=== PATIENT | male | born 1960 | race Native Hawaiian/Other Pacific Islander ===

== ENCOUNTER 2017-06-06 14:03 | Emergency (ER) | payer OTHER ==
[~2017-06-06] VITALS: Ht 188 cm; Wt 90.7 kg
[2017-06-06 15:48] VITALS: BP 135/90; TEMP 99
[2017-09-27] MEDS ORDERED: ELIQUIS5 MG PO (09:38)
[2017-09-27] MEDS ORDERED: CYAN10009 IM (09:38)
[2017-09-27] MEDS ORDERED: MULTTAB52 PO (09:38)
[2017-09-27] MEDS ORDERED: SILV1CRE TOP (09:38)
[2017-09-27] MEDS ORDERED: LOPRESSOR 25 MG PO (09:38)
[2017-09-27] MEDS ORDERED: TAMS0.4C PO (09:38)
[2017-09-27] MEDS ORDERED: FOLI1TAB26 PO (09:38)
[2017-09-27] MEDS ORDERED: FURO40TA93 PO (09:38)
[2017-09-27] MEDS ORDERED: ZINC220C4 PO (09:38)
[2017-09-27] MEDS ORDERED: GABA300C2 PO (09:38)
== END 2017-06-06 15:50 | disposition home or self-care (01) ==
LOC: ED 14:03
DX: M19.012 Primary osteoarthritis, left shoulder (principal)
CPT/HCPCS: 99282

== ENCOUNTER 2017-09-17 16:24 | Outpatient (CLI) | payer OTHER | END 2017-09-17 16:32 | disposition short-term general hospital (02) | LOC: AMB 16:24 | DX: J16.8 Pneumonia due to other specified infectious organisms (principal); R06.02 Shortness of breath | CPT/HCPCS: A0425; A0427 ==

== ENCOUNTER 2017-09-17 16:33 | Inpatient (IN) | payer OTHER ==
[~2017-09-17] VITALS: Ht 185.4 cm; Wt 96.2 kg
[2017-09-17 16:34] VITALS: BP 125/88; TEMP 98.1
[2017-09-17 17:00] VITALS: BP 129/84
[2017-09-17 17:14] LABS: POTASSIUM 3.9 mmol/L (3.6-5.2)
[2017-09-17 17:17] LABS: PLATELET COUNT 128 K/uL (142-355)
[2017-09-17 17:30] VITALS: BP 133/81
[2017-09-17 18:00] VITALS: BP 130/73
[2017-09-17 18:28] VITALS: BP 133/85
[2017-09-17 23:26] VITALS: BP 140/77; TEMP 98.2; Ht 185.4 cm; Wt 96.2 kg
[2017-09-18] VITALS (7 sets, daily range): BP systolic 122–144; BP diastolic 71–97; TEMP 97.7–98.1
[2017-09-19 04:00] VITALS: BP 154/97; TEMP 97.9
[2017-09-19 08:00] VITALS: BP 134/103; TEMP 98
[2017-09-19 09:25] LABS: PLATELET COUNT 108 K/uL (142-355)
[2017-09-19 09:48] LABS: POTASSIUM 5.6 mmol/L (3.6-5.2)
[2017-09-19 12:00] VITALS: BP 136/88; TEMP 98.2
[2017-09-19 16:00] VITALS: BP 141/77; TEMP 98.2
[2017-09-19 20:00] VITALS: BP 144/87; TEMP 97.6
[2017-09-20] VITALS (10 sets, daily range): BP systolic 102–150; BP diastolic 64–98; TEMP 97.8–98.2
[2017-09-20 06:23] LABS: PLATELET COUNT 87 K/uL (142-355)
[2017-09-20 06:46] LABS: POTASSIUM 4.2 mmol/L (3.6-5.2)
[2017-09-21] VITALS (21 sets, daily range): BP systolic 117–159; BP diastolic 49–775; TEMP 97.5–98.8
[2017-09-21 03:58] LABS: PLATELET COUNT 77 K/uL (142-355)
[2017-09-21 04:59] LABS: POTASSIUM 4.7 mmol/L (3.6-5.2)
[2017-09-22] VITALS (22 sets, daily range): BP systolic 116–166; BP diastolic 55–114; TEMP 97.8–98.9
[2017-09-22 05:01] LABS: PLATELET COUNT 73 K/uL (142-355)
[2017-09-22 05:43] LABS: POTASSIUM 3.8 mmol/L (3.6-5.2)
[2017-09-23] VITALS (18 sets, daily range): BP systolic 111–163; BP diastolic 65–102; TEMP 98–99
[2017-09-23 09:38] LABS: PLATELET COUNT 95 K/uL (142-355)
[2017-09-23 09:55] LABS: POTASSIUM 3.5 mmol/L (3.6-5.2)
[2017-09-24] VITALS (32 sets, daily range): BP systolic 117–165; BP diastolic 72–105; TEMP 97.9–98.9
[2017-09-24 05:06] LABS: PLATELET COUNT 91 K/uL (142-355)
[2017-09-24 05:23] LABS: POTASSIUM 3.2 mmol/L (3.6-5.2)
[2017-09-25] VITALS (18 sets, daily range): BP systolic 124–163; BP diastolic 18–104; TEMP 97.8–98.7
[2017-09-25 05:29] LABS: PLATELET COUNT 104 K/uL (142-355)
[2017-09-25 06:24] LABS: POTASSIUM 3.3 mmol/L (3.6-5.2)
[2017-09-26] VITALS (14 sets, daily range): BP systolic 105–159; BP diastolic 67–90; TEMP 98–98.8
[2017-09-26 06:32] LABS: PLATELET COUNT 109 K/uL (142-355)
[2017-09-26 06:42] LABS: POTASSIUM 3.3 mmol/L (3.6-5.2)
[2017-09-27 01:45] VITALS: BP 120/82
[2017-09-27 03:45] VITALS: BP 126/82; TEMP 97.5
[2017-09-27 05:45] VITALS: BP 128/76
[2017-09-27 08:00] VITALS: BP 142/87; TEMP 97.9
[2017-09-27] MEDS ORDERED: TAMS0.4C PO ×2 (09:38)
[2017-09-27] MEDS ORDERED: GABA300C2 PO ×2 (09:38)
[2017-09-27] MEDS ORDERED: MULTTAB52 PO ×2 (09:38)
[2017-09-27] MEDS ORDERED: SILV1CRE TOP ×2 (09:38)
[2017-09-27] MEDS ORDERED: FURO40TA93 PO ×2 (09:38)
[2017-09-27] MEDS ORDERED: LOPRESSOR 25 MG PO ×2 (09:38)
[2017-09-27] MEDS ORDERED: FOLI1TAB26 PO ×2 (09:38)
[2017-09-27] MEDS ORDERED: ELIQUIS5 MG PO ×2 (09:38)
[2017-09-27] MEDS ORDERED: CYAN10009 IM ×2 (09:38)
[2017-09-27] MEDS ORDERED: ZINC220C4 PO ×2 (09:38)
== END 2017-09-27 15:45 | disposition home or self-care (01) | DRG 291 ==
LOC: ED 16:33 → MED/SURG 19:45 → ICU 09-20 11:45
PROVIDERS: Emergency Medicine; Family Medicine; Nurse Practitioner Family
PROC: 30233N1 Transfusion of Nonautologous Red Blood Cells into Peripheral Vein, Percutaneous Approach (ICD-10-PCS; 2017-09-18)
PROC: 30233N1 Transfusion of Nonautologous Red Blood Cells into Peripheral Vein, Percutaneous Approach (ICD-10-PCS; 2017-09-19)
PROC: 30233N1 Transfusion of Nonautologous Red Blood Cells into Peripheral Vein, Percutaneous Approach (ICD-10-PCS; 2017-09-21)
PROC: 30233R1 Transfusion of Nonautologous Platelets into Peripheral Vein, Percutaneous Approach (ICD-10-PCS; principal; 2017-09-22)
PROC: 0DJ08ZZ Inspection of Upper Intestinal Tract, Via Natural or Artificial Opening Endoscopic (ICD-10-PCS; 2017-09-24)
DX: I50.31 Acute diastolic (congestive) heart failure (principal); J18.8 Other pneumonia, unspecified organism; I48.91 Unspecified atrial fibrillation; E11.9 Type 2 diabetes mellitus without complications; Z91.14 Patient's other noncompliance with medication regimen; D64.89 Other specified anemias; E11.621 Type 2 diabetes mellitus with foot ulcer; E88.09 Other disorders of plasma-protein metabolism, not elsewhere classified; E83.51 Hypocalcemia; D69.6 Thrombocytopenia, unspecified; K92.2 Gastrointestinal hemorrhage, unspecified; K29.60 Other gastritis without bleeding; K29.80 Duodenitis without bleeding; K26.9 Duodenal ulcer, unspecified as acute or chronic, without hemorrhage or perforation; K21.9 Gastro-esophageal reflux disease without esophagitis; D47.3 Essential (hemorrhagic) thrombocythemia
CPT/HCPCS: 36415; 36430; 36591; 36600; 51702; 74022; 80053; 80202; 81000; 82140; 82150; 82272; 82550; 82570; 82728; 82747; 82805; 82948; 82962; 83540; 83615; 83690; 83735; 83880; 84300; 84484; 84540; 85014; 85018; 85027; 86850; 86900; 86901; 86922; 87040; 93005; 93306; 94640; 94664; 94760; 96365; 96366; 96367; 96372; 96374; 96375; 99284; J0456; J0696; J1160; J1170; J1650; J1815; J1940; J2001; J2060; J2250; J2270; J2405; J2704; J2930; J3370; J3420; J3475; J3490; P9016; P9035; P9047; Q9963

== ENCOUNTER 2017-10-06 11:54 | Emergency (ER) | payer OTHER ==
[~2017-10-06] VITALS: Ht 185.4 cm; Wt 96.2 kg
[2017-10-06 11:52] VITALS: TEMP 98.2
[~2017-10-06 11:54] MED LIST: CYAN10009 IM; ELIQUIS5 MG PO; FOLI1TAB26 PO; FURO40TA93 PO; GABA300C2 PO; LOPRESSOR 25 MG PO; MULTTAB52 PO; SILV1CRE TOP; TAMS0.4C PO; ZINC220C4 PO
[2017-10-06 12:55] LABS: PLATELET COUNT 94 K/uL (142-355)
[2017-10-06 13:15] LABS: POTASSIUM 2.5 mmol/L (3.6-5.2)
[2017-10-06 16:27] VITALS: BP 124/74
== END 2017-10-06 16:28 | disposition home or self-care (01) ==
LOC: ED 11:54
PROVIDERS: Specialist
DX: I99.8 Other disorder of circulatory system (principal); R18.8 Other ascites; F19.10 Other psychoactive substance abuse, uncomplicated
CPT/HCPCS: 36415; 36600; 80053; 80307; 80320; 81000; 82550; 82553; 82805; 83605; 83735; 83880; 84100; 84484; 85027; 85651; 93005; 99283

== ENCOUNTER 2017-10-17 14:13 | Outpatient (CLI) | payer OTHER ==
[2017-10-17] MEDS ORDERED: ELIQUIS5 MG PO (15:24)
[2017-10-17] MEDS ORDERED: FURO40TA93 PO (15:24)
[2017-10-17] MEDS ORDERED: ZINC220C4 PO (15:25)
[2017-10-17] MEDS ORDERED: ONE DAILY FOR MEN 50 OR (15:26)
[2017-10-17] MEDS ORDERED: GABA300C2 PO (15:27)
[2017-10-17] MEDS ORDERED: CYAN10009 IM (15:27)
[2017-10-17] MEDS ORDERED: PANTOPRAZOLE 40MG TA PO (15:28)
[2017-10-17] MEDS ORDERED: KP FOLIC ACID1 MG PO (15:28)
[2017-10-17] MEDS ORDERED: TAMSULOSIN0.4 MG PO (15:29)
[2017-10-17] MEDS ORDERED: SILVADENE1 % EX (15:29)
[2017-10-17] MEDS ORDERED: METO5TAB38 PO (15:30)
== END 2017-10-17 14:48 | disposition short-term general hospital (02) ==
LOC: AMB 14:13
DX: R06.09 Other forms of dyspnea (principal); R53.1 Weakness
CPT/HCPCS: A0425; A0427

== ENCOUNTER 2017-10-17 14:48 | Emergency (ER) | payer OTHER ==
[~2017-10-17] VITALS: Ht 182.9 cm; Wt 90.7 kg
[2017-10-17] MEDS ORDERED: FURO40TA93 PO (15:24)
[2017-10-17] MEDS ORDERED: ELIQUIS5 MG PO (15:24)
[2017-10-17] MEDS ORDERED: ZINC220C4 PO (15:25)
[2017-10-17] MEDS ORDERED: ONE DAILY FOR MEN 50 OR (15:26)
[2017-10-17] MEDS ORDERED: CYAN10009 IM (15:27)
[2017-10-17] MEDS ORDERED: GABA300C2 PO (15:27)
[2017-10-17] MEDS ORDERED: PANTOPRAZOLE 40MG TA PO (15:28)
[2017-10-17] MEDS ORDERED: KP FOLIC ACID1 MG PO (15:28)
[2017-10-17] MEDS ORDERED: TAMSULOSIN0.4 MG PO (15:29)
[2017-10-17] MEDS ORDERED: SILVADENE1 % EX (15:29)
[2017-10-17] MEDS ORDERED: METO5TAB38 PO (15:30)
[2017-10-17 15:40] LABS: PLATELET COUNT 87 K/uL (142-355)
[2017-10-17 16:06] LABS: POTASSIUM 2.4 mmol/L (3.6-5.2)
[2017-10-17 19:17] VITALS: BP 110/51; TEMP 98.7
== END 2017-10-17 20:25 | disposition short-term general hospital (02) ==
LOC: ED 14:48
PROVIDERS: Family Medicine
DX: K55.059 Acute (reversible) ischemia of intestine, part and extent unspecified (principal); E11.9 Type 2 diabetes mellitus without complications; I48.91 Unspecified atrial fibrillation
CPT/HCPCS: 36415; 80053; 82550; 83605; 83735; 84100; 84443; 84484; 85027; 93005; 96361; 96365; 96366; 96368; 96372; 96375; 99285; J1885; J3490; J7120

== ENCOUNTER 2018-03-02 19:28 | Outpatient (CLI) | payer OTHER ==
[~2018-03-02 19:28] MED LIST changes: +KP FOLIC ACID1 MG PO; +METO5TAB38 PO; +ONE DAILY FOR MEN 50 OR; +PANTOPRAZOLE 40MG TA PO; +SILVADENE1 % EX; +TAMSULOSIN0.4 MG PO
[2018-03-02] MEDS ORDERED: NADOLOL20 MG PO (19:54)
[2018-03-02] MEDS ORDERED: KLOR-CON M2020 MEQ PO (19:55)
[2018-03-02] MEDS ORDERED: SPIRONOLACT25 MG PO (19:56)
== END 2018-03-02 19:37 | disposition short-term general hospital (02) ==
LOC: AMB 19:28
DX: R07.89 Other chest pain (principal)
CPT/HCPCS: A0425; A0427

== ENCOUNTER 2018-03-02 19:51 | Emergency (ER) | payer OTHER ==
[~2018-03-02] VITALS: Ht 188 cm; Wt 90.7 kg
[2018-03-02] MEDS ORDERED: NADOLOL20 MG PO (19:54)
[2018-03-02] MEDS ORDERED: KLOR-CON M2020 MEQ PO (19:55)
[2018-03-02] MEDS ORDERED: SPIRONOLACT25 MG PO (19:56)
[2018-03-02 20:21] LABS: PLATELET COUNT 137 K/uL (142-355)
[2018-03-02 20:43] LABS: POTASSIUM 4.2 mmol/L (3.6-5.2); SODIUM 137 mmol/L (136-145)
[2018-03-03 00:06] VITALS: BP 136/77; TEMP 96.8
== END 2018-03-03 00:20 | disposition short-term general hospital (02) ==
LOC: ED 19:51
PROC: 0T9B70Z Drainage of Bladder with Drainage Device, Via Natural or Artificial Opening (ICD-10-PCS; principal; 2018-03-02)
DX: K74.69 Other cirrhosis of liver (principal); R18.8 Other ascites
CPT/HCPCS: 51702; 74022; 80053; 81000; 84484; 85027; 96361; 96365; 96374; 96375; 99285; J2175; J2550

== ENCOUNTER 2018-03-17 15:53 | Outpatient (CLI) | payer OTHER ==
[~2018-03-17 15:53] MED LIST changes: +KLOR-CON M2020 MEQ PO; +NADOLOL20 MG PO; +SPIRONOLACT25 MG PO
[2018-03-18] MEDS ORDERED: FE TABS325 MG PO (09:41)
[2018-03-18] MEDS ORDERED: PRED20TA27 PO (09:43)
[2018-03-18] MEDS ORDERED: ALBU0.0813 (10:37)
== END 2018-03-17 16:21 | disposition short-term general hospital (02) ==
LOC: AMB 15:53
DX: R60.0 Localized edema (principal)
CPT/HCPCS: A0425; A0427

== ENCOUNTER 2018-03-17 16:23 | Inpatient (IN) | payer OTHER ==
[2018-03-17] VITALS (9 sets, daily range): BP systolic 117–129; BP diastolic 67–80; TEMP 97.9–98.3
[~2018-03-17] VITALS: Ht 188 cm; Wt 105.4 kg
[2018-03-17 16:51] LABS: PLATELET COUNT 135 K/uL (142-355)
[2018-03-17 16:57] LABS: POTASSIUM 4.4 mmol/L (3.6-5.2); SODIUM 138 mmol/L (136-145)
[2018-03-18 00:19] VITALS: BP 122/77; TEMP 98.3; Ht 188 cm; Wt 105.4 kg
[2018-03-18 04:14] VITALS: BP 113/74; TEMP 98.7
[2018-03-18 06:00] LABS: POTASSIUM 4.1 mmol/L (3.6-5.2)
[2018-03-18 08:07] VITALS: BP 123/55; TEMP 98.2
[2018-03-18] MEDS ORDERED: FE TABS325 MG PO (09:41)
[2018-03-18] MEDS ORDERED: PRED20TA27 PO (09:43)
[2018-03-18] MEDS ORDERED: ALBU0.0813 (10:37)
[2018-03-18 12:00] VITALS: BP 136/83; TEMP 98.4
[2018-03-18 16:19] VITALS: BP 127/70; TEMP 97.9
[2018-03-18 20:14] VITALS: BP 126/58; TEMP 98.2
[2018-03-19 00:14] VITALS: BP 106/77; TEMP 98.9
[2018-03-19 04:00] VITALS: BP 104/67; TEMP 98.1
[2018-03-19 06:47] LABS: POTASSIUM 3.9 mmol/L (3.6-5.2)
[2018-03-19 08:09] VITALS: BP 110/66; TEMP 97.8
[2018-03-19 12:19] VITALS: BP 112/65; TEMP 97.9
[2018-03-19] MEDS ORDERED: SPIRONOLACT100 MG PO (13:06)
[2018-03-19 16:24] VITALS: BP 103/60; TEMP 98
[2018-03-19 20:12] VITALS: BP 109/70; TEMP 98.4
[2018-03-20 00:25] VITALS: BP 102/68; TEMP 98.8
[2018-03-20 04:00] VITALS: BP 116/62; TEMP 99.2
[2018-03-20 04:54] LABS: PLATELET COUNT 78 K/uL (142-355)
[2018-03-20 05:09] LABS: POTASSIUM 3.7 mmol/L (3.6-5.2)
[2018-03-20 08:00] VITALS: BP 98/57; TEMP 98.5
[2018-03-20 12:00] VITALS: BP 101/51; TEMP 98.5
[2018-03-20 16:00] VITALS: BP 99/51; TEMP 98.5
[2018-03-20 20:00] VITALS: BP 113/65; TEMP 98.2
[2018-03-21 00:20] VITALS: BP 98/61; TEMP 98.8
[2018-03-21 04:26] VITALS: BP 106/68; TEMP 98.5
[2018-03-21 06:04] LABS: PLATELET COUNT 104 K/uL (142-355)
[2018-03-21 06:28] LABS: POTASSIUM 4.1 mmol/L (3.6-5.2)
[2018-03-21 08:03] VITALS: BP 113/56; TEMP 98.2
[2018-03-21 12:17] VITALS: BP 93/58; TEMP 97.9
[2018-03-21 20:00] VITALS: BP 107/65; TEMP 98.8
[2018-03-22] VITALS: BP 108/66; TEMP 97.8
[2018-03-22 04:00] VITALS: BP 105/70; TEMP 98.4
[2018-03-22 06:59] LABS: PLATELET COUNT 81 K/uL (142-355)
[2018-03-22 07:08] LABS: POTASSIUM 4.8 mmol/L (3.6-5.2)
[2018-03-22 08:05] VITALS: BP 101/63; TEMP 98.3
[2018-03-22] MEDS ORDERED: CEPH250C22 PO (10:15)
== END 2018-03-22 13:45 | disposition home or self-care (01) | DRG 292 ==
LOC: ED 16:23 → MED/SURG 20:30
PROVIDERS: Emergency Medicine
PROC: 0W9G3ZZ Drainage of Peritoneal Cavity, Percutaneous Approach (ICD-10-PCS; principal; 2018-03-17)
PROC: 30233N1 Transfusion of Nonautologous Red Blood Cells into Peripheral Vein, Percutaneous Approach (ICD-10-PCS; 2018-03-20)
PROC: 30233R1 Transfusion of Nonautologous Platelets into Peripheral Vein, Percutaneous Approach (ICD-10-PCS; 2018-03-21)
DX: I50.9 Heart failure, unspecified (principal); L03.116 Cellulitis of left lower limb; L03.115 Cellulitis of right lower limb; R17 Unspecified jaundice; K70.30 Alcoholic cirrhosis of liver without ascites; I48.91 Unspecified atrial fibrillation; D64.89 Other specified anemias; E11.42 Type 2 diabetes mellitus with diabetic polyneuropathy; D69.6 Thrombocytopenia, unspecified; E11.621 Type 2 diabetes mellitus with foot ulcer; B35.4 Tinea corporis; K70.31 Alcoholic cirrhosis of liver with ascites
CPT/HCPCS: 36415; 49080; 80048; 80053; 81000; 82550; 82553; 83880; 84484; 85027; 86850; 86900; 86901; 86922; 93005; 94760; 96374; 96375; 96376; 99284; J1650; J1940; J2175; J2405; J2550; J3411; J3490; J7120; P9016; P9035; P9047

== ENCOUNTER 2018-03-30 14:28 | Outpatient (CLI) | payer OTHER ==
[~2018-03-30 14:28] MED LIST changes: +ALBU0.0813; +CEPH250C22 PO; +FE TABS325 MG PO; +PRED20TA27 PO; +SPIRONOLACT100 MG PO
== END 2018-03-30 14:35 | disposition short-term general hospital (02) ==
LOC: AMB 14:28
DX: K92.0 Hematemesis (principal); K74.69 Other cirrhosis of liver
CPT/HCPCS: A0425; A0427

== ENCOUNTER 2018-03-30 14:35 | Emergency (ER) | payer OTHER ==
[~2018-03-30] VITALS: Ht 188 cm; Wt 105.2 kg
[2018-03-30 14:46] VITALS: TEMP 98
[2018-03-30 14:54] LABS: PLATELET COUNT 173 K/uL (142-355)
[2018-03-30 15:12] LABS: POTASSIUM 6.6 mmol/L (3.6-5.2)
[2018-03-30 15:13] LABS: PARTIAL THROMBOPLASTIN TIME 30.9 SECONDS (24.5-33.6)
[2018-03-30 17:46] VITALS: BP 107/86
== END 2018-03-30 17:54 | disposition short-term general hospital (02) ==
LOC: ED 14:35
PROVIDERS: Family Medicine
PROC: 30233N1 Transfusion of Nonautologous Red Blood Cells into Peripheral Vein, Percutaneous Approach (ICD-10-PCS; principal; 2018-03-30)
PROC: 0T9B70Z Drainage of Bladder with Drainage Device, Via Natural or Artificial Opening (ICD-10-PCS; 2018-03-30)
DX: K92.2 Gastrointestinal hemorrhage, unspecified (principal); K74.69 Other cirrhosis of liver
CPT/HCPCS: 36430; 51702; 80053; 81000; 82150; 83690; 85027; 85610; 85730; 86850; 86900; 86901; 86922; 87040; 96361; 96365; 96366; 99285; P9016

== ENCOUNTER 2018-05-28 10:02 | Outpatient (CLI) | payer OTHER ==
[2018-05-28 11:03] LABS: PLATELET COUNT 99 K/uL (142-355)
[2018-05-28 11:21] LABS: POTASSIUM 2.6 mmol/L (3.6-5.2)
[2018-05-29] MEDS ORDERED: HYDROXYZINE HYD25 MG PO (10:59)
[2018-05-29] MEDS ORDERED: DIGOX250 MCG PO (11:00)
[2018-05-29] MEDS ORDERED: METO-837 PO (11:02)
== END 2018-05-28 19:03 | disposition home or self-care (01) ==
LOC: LAB 10:02
PROVIDERS: Family Medicine
DX: K70.31 Alcoholic cirrhosis of liver with ascites (principal); I48.91 Unspecified atrial fibrillation; E11.9 Type 2 diabetes mellitus without complications; E55.9 Vitamin D deficiency, unspecified
CPT/HCPCS: 80053; 80061; 80162; 82306; 82607; 83036; 83735; 84153; 84443; 85027

== ENCOUNTER 2018-05-29 10:36 | Outpatient (CLI) | payer OTHER ==
[2018-05-29] MEDS ORDERED: HYDROXYZINE HYD25 MG PO (10:59)
[2018-05-29] MEDS ORDERED: DIGOX250 MCG PO (11:00)
[2018-05-29] MEDS ORDERED: METO-837 PO (11:02)
== END 2018-05-29 10:45 | disposition short-term general hospital (02) ==
LOC: AMB 10:36
DX: R10.9 Unspecified abdominal pain (principal)
CPT/HCPCS: A0425; A0427

== ENCOUNTER 2018-05-29 10:49 | Emergency (ER) | payer OTHER ==
[~2018-05-29] VITALS: Ht 188 cm; Wt 105.2 kg
[2018-05-29] MEDS ORDERED: HYDROXYZINE HYD25 MG PO (10:59)
[2018-05-29] MEDS ORDERED: DIGOX250 MCG PO (11:00)
[2018-05-29] MEDS ORDERED: METO-837 PO (11:02)
[2018-05-29 11:51] LABS: PLATELET COUNT 97 K/uL (142-355)
[2018-05-29 11:57] LABS: POTASSIUM 3.2 mmol/L (3.6-5.2)
[2018-05-29 15:00] VITALS: BP 122/74; TEMP 98.5
== END 2018-05-29 15:00 | disposition short-term general hospital (02) ==
LOC: ED 10:49
PROVIDERS: Family Medicine
DX: K74.69 Other cirrhosis of liver (principal); R18.8 Other ascites; J81.1 Chronic pulmonary edema; R00.0 Tachycardia, unspecified
CPT/HCPCS: 80053; 82150; 83690; 85027; 93005; 96361; 96365; 96374; 96376; 99284; J1940; J3490

== ENCOUNTER 2018-05-29 15:06 | Outpatient (CLI) | payer OTHER ==
[~2018-05-29 15:06] MED LIST changes: +DIGOX250 MCG PO; +HYDROXYZINE HYD25 MG PO; +METO-837 PO
== END 2018-05-29 16:34 | disposition short-term general hospital (02) ==
LOC: AMB 15:06
DX: K74.69 Other cirrhosis of liver (principal); R18.8 Other ascites; J81.1 Chronic pulmonary edema; R00.0 Tachycardia, unspecified
CPT/HCPCS: A0425; A0427